=== PATIENT | female | born 1960 | race Caucasian/White ===

== ENCOUNTER 2017-06-05 12:57 | Emergency (ER) | payer MEDICARE ==
[~2017-06-05] VITALS: Ht 167.6 cm; Wt 61.2 kg
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
[2017-06-05] MEDS ORDERED: NAPROXEN 500 MG TABLET PO STA (13:36)
[2017-06-05] MEDS ORDERED: NAPROXEN 250 MG TABLET ONE (13:46)
--- NOTE | 2017-06-05 14:37 | NUR ---
OFFICER JASBIR ([id number]) AT BEDSIDE FOR STATEMENT
[2017-06-05 14:48] VITALS: BP 121/80
== END 2017-06-05 14:49 | disposition home or self-care (01) ==
LOC: ER 12:59
DX: S40.812A Abrasion of left upper arm, initial encounter (principal); M32.9 Systemic lupus erythematosus, unspecified; V49.49XA Driver injured in collision with other motor vehicles in traffic accident, initial encounter; Y93.89 Activity, other specified; Y92.410 Unspecified street and highway as the place of occurrence of the external cause; Y99.8 Other external cause status
CPT/HCPCS: 99283; A4606; Z7610